=== PATIENT | female | born 1950 | race Caucasian/White ===

== ENCOUNTER 2024-12-17 09:26 | Inpatient (IN) | payer MEDICARE, OTHER, SELFPAY ==
[2024-12-16] VITALS (14 sets, daily range): BP systolic 115–163; BP diastolic 53–87; BMI 27.3; BMI 25.7
--- NOTE | 2024-12-16 07:02 | ED.GENMED ---
History of Present Illness
General
Chief Complaint: Rectal Bleeding
Source: patient
Time Seen by Provider: 12/16/24 06:46
History of Present Illness
History of Present Illness:
74-year-old female presents to the emergency room complaining of bright red blood per rectum. Symptoms began last evening when she developed nausea vomiting and passed bloody stool. She no longer has any nausea or vomiting but has had several
episodes of passing small amounts of bright red blood. She has mild lower abdominal pain. She does not take any oral anticoagulants. Patient is unsure if she vomited any blood because it is in the dark.
Phy Exam
Physical Exam
Physical Exam:
General: Awake, Alert, Oriented X3. No acute distress.
Vitals: unremarkable
Head: Atraumatic
Eyes: Pupils equal, EOMI
Throat: Airway intact, no exudates
Neck: Trachea midline
Lungs: Clear and equal b/l
Heart: Regular rate, no murmurs
Abd: Soft, Nontender, No pulsatile mass
Rectal: Empty rectal vault
Neuro: Nonfocal
Skin: Warm, dry, no rash
Extremities: pulses equal b/l, no edema
Course
Orders/Labs/Results
Orders:
Orders
12/16/24 06:54
IV Insert/Care/Rem.- Treatment PRN
12/16/24 07:01
CT Abd/pelvis W Iv Cont Urgent
Comment:
Reason For Exam: rectal bleeding, abd pain
12/16/24 07:03
Type+Screen Urgent
Basic Metabolic Panel Urgent
Complete Blood Count/With Diff Urgent
12/16/24 07:57
ABO [Blood Group&Type] Urgent
12/16/24 09:11
Piperacillin/Tazo 4.5 Gram [Zosyn] 4.5 gram in 100 ml IV NOW
12/16/24 09:12
HYDROmorphone [Dilaudid] 0.5 mg IV NOW STA
12/16/24 09:14
Stool Culture Urgent
[facility] Source: Feces/Stool
Specimen Description:
Stool For WBC Urgent
[facility] Source: Feces/Stool
Specimen Description:
12/16/24 13:06
HYDROmorphone [Dilaudid] 0.5 mg IV NOW STA
Abnormal Lab Results
12/16/24
07:03
WBC 16.4 H 10^3/uL
(4.8-10.8)
MPV 10.8 H fL
(7.4-10.4)
Abs Immat Gran (auto) 0.1 H 10^3/uL
(0-0.05)
Absolute Neuts (auto) 14.2 H 10^3/uL
(1.4-6.5)
Absolute Monos (auto) 0.7 H 10^3/uL
(0.1-0.6)
Neutrophils % 86.8 H %
(42.2-75.2)
Lymphocytes % 8.2 L %
(20.5-51.1)
Sodium 134 L mmol/L
(135-145)
BUN 19 H mg/dl
(7-17)
Glucose 152 H mg/dl
(70-99)
12/16/24 07:03
12/16/24 07:03
Vital Signs
Initial and Last Documented VS:
Initial Vital Signs
Temp Pulse Resp BP Pulse Ox
98.0 F 110 20 128/85 97
12/16/24 04:53 12/16/24 04:53 12/16/24 04:53 12/16/24 04:53 12/16/24 04:53
Last Documented Vital Signs
Temp Pulse Resp BP Pulse Ox
98.8 F 87 15 115/57 93
12/16/24 05:44 12/16/24 08:00 12/16/24 08:00 12/16/24 10:00 12/16/24 10:00
MDM/Problems Addressed
Differential Diagnosis Includes:
Diverticular bleed, infectious colitis, inflammatory bowel disease, ischemic
MDM/Problems Addressed:
Patient presents with rectal bleeding that is suggestive of either diverticular bleeding or colitis. She does have abdominal pain associate with this. CT shows inflammatory changes of the colon from the transverse colon to the rectum. White count
is elevated at 16.4. Patient treated with antibiotics. Will require hospitalization for monitoring, pain control.
*Radiology
Radiology exam reviewed: radiology read reviewed
*Pulse Oximetry
Patient hypoxic: no
*Cell Tuber Hand Interpretation
Rate: normal
Interpretation: normal
Heart Rate: 82
Rhythm: sinus
*Critical Care Note
Total Time (30-74mins, 75-104mins- exclusive of procedures): Not Applicable
ED Attending Note
-
Portions of this chart may have been created with voice recognition software.� Occasional wrong word or��sound alike� substitutions may have occurred due to the inherent limitations of voice recognition software.
Discharge Plan
Departure
Patient Disposition: Admit
Date of Disposition: 12/16/24
Time of Disposition: 09:13
Admit to: Med/Surg
Presentation/result/management discussed w/ accepting MD/DO: Hospitalist
Condition: Fair
Discharge Problem:
Rectal bleeding, Colitis, Abdominal pain
Referrals:
Declan Velez MD [Family Provider] -
Interventions
Interventions:
*Risk Screen - Suicide Last Done: 12/16/24 04:53
*General Assessment Last Done: 12/16/24 04:53
*Neglect/Abuse Screening Last Done: 12/16/24 04:53
*ED- Fall Risk Assessment Last Done: 12/16/24 05:46
*ED COVID-19 Vaccine History Last Done: 12/16/24 05:46
RG-Cxwdui-Wqwrsdyldm Assessment Last Done: 12/16/24 05:49
ED- Cardiac Assessment Last Done: 12/16/24 05:47
ED- Pulmonary Assessment Last Done: 12/16/24 05:49
Discharge Date and Time
Print Language: SYRIAC
[2024-12-16 07:12] LABS: % Basophils 0.1 % (0-2); % Immature Granulocytes 0.5 % (0-0.5); % Lymphocytes 8.2 % (20.5-51.1); % Monocytes 4.4 % (1.7-9.3); % Neutrophils 86.8 % (42.2-75.2); Absolute Immature Granulocytes 0.1 10^3/uL (0-0.05); Absolute Lymphocytes 1.3 10^3/uL (1.2-3.4); Absolute Monocytes 0.7 10^3/uL (0.1-0.6); Absolute Neutrophils 14.2 10^3/uL (1.4-6.5); Hematocrit 39.4 % (37.0-47.0); Hemoglobin 13.3 g/dL (12.0-16.0); Mean Corp Hgb Conc. 33.8 g/dL (33.0-37.0); Mean Corpuscular Volume 85.8 fL (81.0-99.0); Mean Platelet Volume 10.8 fL (7.4-10.4); Nucleated Red Blood Cells % 0 %; Platelet Count 317 10^3/uL (130-400); Red Blood Cell Count 4.59 10^6/uL (4.20-5.40); Red Cell Dist. Width 12.2 % (11.5-14.5); White Blood Cell Count 16.4 10^3/uL (4.8-10.8)
[2024-12-16 07:23] LABS: Blood Urea Nitrogen 19 mg/dl (7-17); Calcium 9.4 mg/dl (8.4-10.2); Carbon Dioxide 26 mmol/L (22-30); Chloride 99 mmol/L (98-107); Estimated Creatinine Clearance 78 ml/min; Glucose 152 mg/dl (70-99); Potassium 4.4 mmol/L (3.5-5.1); Sodium 134 mmol/L (135-145); eGFR > 60.00
[2024-12-16] MEDS: DILAUDID 0.5 MG IV ×3 (09:26→21:35)
[2024-12-16] MEDS: ZOSYN 100 IV (09:26)
--- NOTE | 2024-12-16 13:19 | HPS.HSE ---
Family Physician
-
Family Physician: Declan Velez
Chief Complaint
-
rectal bleeding
History of Present Illness
74-year-old female past medical history of rheumatoid arthritis, hypertension, depression, presenting with bright red blood per rectum. Symptoms started last evening when she developed nausea and vomiting and plus diarrhea with bloody stool. She
no longer has nausea or vomiting but continues to pass all amounts of bright red blood. She has mild bilateral lower abdominal pain. Denies anticoagulants. Not sure if she vomited blood because it was dark and she was not able to see it. Denies
fevers or chills. Denies any family history of GI problems.
She and her ate out last night and had codfish. Her feels fine.
Denies smoking or alcohol use.
Medical History
Past Medical History
Past Medical History: Reports Other ( rheumatoid arthritis, hypertension, depression)
Past Surgical History: Reports Other (back surgery )
Social History
Tobacco: Non-smoker
Alcohol: None
Drug: None
Family History
Family History: Not pertinent
Allergies / Home Medications
Allergies reflects when Allergies were last updated in [employer].
Home Medications with original date entered in [employer]
Allergy/Medication List:
Allergies
Allergy/AdvReac Type Severity Reaction Status Date / Time
No Known Allergies Allergy Unverified 12/16/24 04:52
Review of Systems
-
History Source: Patient
A 12 point ROS was completed and negative except as noted: Yes
Constitutional: Reports No Symptoms
EENT: Reports No Symptoms
Respiratory: Reports No Symptoms
Cardiac: Reports No Symptoms
Abdomen/GI: Reports See HPI
: Reports No Symptoms
Musculoskeletal: Reports No Symptoms
Skin: Reports No Symptoms
Neurological: Reports No Symptoms
Endocrine: Reports No Symptoms
Hematologic/Lymphatic: Reports No Symptoms
Psych: Reports No Symptoms
Physical Exam
Vital Signs
Vital Signs
Temp Pulse Resp BP Pulse Ox
98.8 F 87 15 115/57 93
12/16/24 05:44 12/16/24 08:00 12/16/24 08:00 12/16/24 10:00 12/16/24 10:00
Physical Exam
General: Well Developed, Well Nourished and No Apparent Distress
HEENT: NormoCephalic, Moist mucous membranes and Atraumatic
Respiratory: Clear
Cardiac: S1/S2 and Regular Rhythm; No Murmur or Rub
GI: Soft, Normal Bowel Sounds and Tender; No Organomegaly
Rectal: Deferred by Provider
Musculoskeletal: No Clubbing, No Cyanosis and No Edema
Skin: No Rash
Neuro: Nonfocal/grossly intact
Laboratory Results
-
12/16/24 07:03
12/16/24 07:03
Data Reviewed
-
Lab Data: Labs Reviewed by me
Old Records: Reviewed
Impression/Plan
-
IMPRESSION:
PLAN:
# Infectious colitis with bright red blood per rectum
-Hemoglobin stable at 13.3
-CT abdomen pelvis shows colitis on the left side of the transverse colon continuously throughout the rectum
-N.p.o.
-IV fluids
-Zosyn
-Stool culture pending
-Zofran, Dilaudid for pain
Rheumatoid arthritis
-On Orencia infusion
Essential hypertension
-Continue lisinopril 15 mg
Anxiety/depression
-Continue citalopram 20 mg
Full code
DVT prophylaxis SCDs
N.p.o.
[2024-12-16] MEDS: ZOSYN 50 IV ×2 (16:42→21:40)
[2024-12-16] MEDS: NSS 1000 IV (16:42)
[2024-12-17] MEDS: NSS 1000 IV (03:16)
[2024-12-17] MEDS: ZOSYN 50 IV ×4 (03:16→21:10)
[2024-12-17 07:00] VITALS: BP 153/83
--- NOTE | 2024-12-17 07:04 | W.PN.HOSP.TC ---
Today's Communication/Plan
-
cont abx
follow up stool studies
diet advanced to low residue
discontinue IVF
pain control, antiemetics prn
Assessment / Plan
Assessment / Plan
Physical Exam
General: no acute distress appears comfortable at this time
HEENT: NormoCephalic, Moist mucous membranes and Atraumatic
Respiratory: Clear
Cardiac: S1/S2 and Regular Rhythm; No Murmur or Rub
GI: Soft, nondistended, bowel sounds present and Mild Tenderness
Musculoskeletal: No Clubbing, No Cyanosis and No Edema
Skin: No Rash
Neuro:Aox3 conversant coherent
Psych: calm
74F RA HTN Depression here for infectious colitis
# Infectious colitis with bright red blood per rectum
-Hemoglobin stable at 13.3
-CT abdomen pelvis shows colitis on the left side of the transverse colon continuously throughout the rectum
-tolerated clear liquid diet advanced to low residue
-IV fluids completed
-cont Zosyn
-Stool culture neg cdiff norovirus, rest of studies pending
-Zofran, Dilaudid for pain
Rheumatoid arthritis
-On Orencia infusion
Essential hypertension
-Continue lisinopril 15 mg
Anxiety/depression
-Continue citalopram 20 mg
Full code
DVT prophylaxis SCDs
I spent a total of 50 minutes with the patient or on the floor. More than 50% of this time involved counseling and coordination of care.
Anticipated Discharge: 24 - 48 hours
Subjective/Interval History
-
Date of Service: December 17, 2024
reports improvement in symptoms, abd pain resolved, bloody bowel movements however persists. VSS.
Objective Data
-
Labs:
Laboratory Results
12/17/24
06:56
WBC Pending
Hgb Pending
Hct Pending
Plt Count Pending
Sodium Pending
Potassium Pending
Chloride Pending
Carbon Dioxide Pending
BUN Pending
Creatinine Pending
Glucose Pending
Calcium Pending
Total Bilirubin Pending
AST Pending
ALT Pending
Alkaline Phosphatase Pending
Vital Signs:
Vital Signs
Temp Pulse Resp BP Pulse Ox
98.0 F 80 18 146/74 95
12/16/24 23:55 12/16/24 23:55 12/16/24 23:55 12/16/24 23:55 12/16/24 23:55
[2024-12-17 07:22] LABS: % Basophils 0.1 % (0-2); % Eosinophils 0.9 % (0-6); % Immature Granulocytes 0.4 % (0-0.5); % Lymphocytes 13.5 % (20.5-51.1); % Neutrophils 80.1 % (42.2-75.2); Absolute Eosinophils 0.2 10^3/uL (0-0.7); Absolute Immature Granulocytes 0.1 10^3/uL (0-0.05); Absolute Lymphocytes 2.2 10^3/uL (1.2-3.4); Absolute Monocytes 0.8 10^3/uL (0.1-0.6); Hemoglobin 12.1 g/dL (12.0-16.0); Mean Corp Hgb Conc. 33.6 g/dL (33.0-37.0); Mean Corpuscular Hgb 29.1 pg (27.0-31.0); Mean Corpuscular Volume 86.5 fL (81.0-99.0); Mean Platelet Volume 10.2 fL (7.4-10.4); Nucleated Red Blood Cells % 0 %; Platelet Count 282 10^3/uL (130-400); Red Blood Cell Count 4.16 10^6/uL (4.20-5.40); Red Cell Dist. Width 12.6 % (11.5-14.5); White Blood Cell Count 16.2 10^3/uL (4.8-10.8)
[2024-12-17 07:43] LABS: ALT (SGPT) 11 U/L (0-35); AST (SGOT) 14 U/L (14-36); Albumin 3.3 g/dl (3.5-5.0); Alkaline Phosphatase 90 U/L (38-126); Blood Urea Nitrogen 10 mg/dl (7-17); Calcium 8.2 mg/dl (8.4-10.2); Carbon Dioxide 27 mmol/L (22-30); Chloride 103 mmol/L (98-107); Estimated Creatinine Clearance 69 ml/min; Glucose 108 mg/dl (70-99); Potassium 3.7 mmol/L (3.5-5.1); Sodium 137 mmol/L (135-145); Total Protein 5.7 g/dl (6.3-8.2); eGFR > 60.00
[2024-12-17] MEDS: ZESTRIL 15 MG PO (09:22)
[2024-12-17] MEDS: VITAMIN D3 (cholecalciferol) 25 MCG PO (09:22)
[2024-12-17] MEDS: CELEXA 20 MG PO (09:22)
[2024-12-17] MEDS: NSS IV (13:25)
[2024-12-17 16:00] VITALS: BP 141/85
[2024-12-17] MEDS: DILAUDID 0.5 MG IV (16:06)
[2024-12-17 17:23] LABS: Hematocrit 35.2 % (37.0-47.0); Hemoglobin 11.7 g/dL (12.0-16.0); Mean Corp Hgb Conc. 33.2 g/dL (33.0-37.0); Mean Corpuscular Volume 87.3 fL (81.0-99.0); Mean Platelet Volume 9.8 fL (7.4-10.4); Platelet Count 274 10^3/uL (130-400); Red Blood Cell Count 4.03 10^6/uL (4.20-5.40); Red Cell Dist. Width 12.7 % (11.5-14.5); White Blood Cell Count 15.4 10^3/uL (4.8-10.8)
[2024-12-17 23:28] VITALS: BP 127/78
[2024-12-18] MEDS: ZOSYN 50 IV ×4 (04:32→21:55)
[2024-12-18 05:20] LABS: Hematocrit 35.5 % (37.0-47.0); Hemoglobin 11.9 g/dL (12.0-16.0); Mean Corp Hgb Conc. 33.5 g/dL (33.0-37.0); Mean Corpuscular Volume 86.6 fL (81.0-99.0); Mean Platelet Volume 10.1 fL (7.4-10.4); Platelet Count 277 10^3/uL (130-400); Red Cell Dist. Width 12.7 % (11.5-14.5)
[2024-12-18 05:49] LABS: Blood Urea Nitrogen 7 mg/dl (7-17); Calcium 8.6 mg/dl (8.4-10.2); Carbon Dioxide 31 mmol/L (22-30); Chloride 104 mmol/L (98-107); Estimated Creatinine Clearance 69 ml/min; Glucose 111 mg/dl (70-99); Phosphorus 2.5 mg/dl (2.5-4.5); Potassium 4.1 mmol/L (3.5-5.1); Sodium 138 mmol/L (135-145); eGFR > 60.00
[2024-12-18 07:05] VITALS: BP 154/85
--- NOTE | 2024-12-18 07:10 | W.PN.HOSP.TC ---
Today's Communication/Plan
-
cont abx
follow up stool studies
monitor bowel movements, H&H
Assessment / Plan
Assessment / Plan
Physical Exam
General: no acute distress appears comfortable at this time
HEENT: NormoCephalic, Moist mucous membranes and Atraumatic
Respiratory: Clear
Cardiac: S1/S2 and Regular Rhythm; No Murmur or Rub
GI: Soft, nondistended, bowel sounds present and Mild Tenderness
Musculoskeletal: No Clubbing, No Cyanosis and No Edema
Skin: No Rash
Neuro:Aox3 conversant coherent
Psych: calm
74F RA HTN Depression here for infectious colitis
# Infectious colitis with bright red blood per rectum
-H&H stable
-CT abdomen pelvis shows colitis on the left side of the transverse colon continuously throughout the rectum
-tolerated clear liquid diet advanced to low residue
-IV fluids completed
-cont Zosyn
-Stool culture neg cdiff norovirus, rest of studies pending follow
-Zofran, Dilaudid for pain
Rheumatoid arthritis
-On Orencia infusion
Essential hypertension
-Continue lisinopril 15 mg
Anxiety/depression
-Continue citalopram 20 mg
Full code
DVT prophylaxis SCDs
Discussed with patient and patient's Miguel
I spent a total of 40 minutes with the patient or on the floor. More than 50% of this time involved counseling and coordination of care.
Anticipated Discharge: 24 - 48 hours
Subjective/Interval History
-
Date of Service: December 18, 2024
Overall reports feeling well. Tolerating diet. Bloody bowel movements persist though improving
Objective Data
-
Labs:
Laboratory Results
12/18/24
04:34
WBC 14.0 H
Hgb 11.9 L
Hct 35.5 L
Plt Count 277
Sodium 138
Potassium 4.1
Chloride 104
Carbon Dioxide 31 H
BUN 7
Creatinine 0.6
Glucose 111 H
Calcium 8.6
Vital Signs:
Vital Signs
Temp Pulse Resp BP Pulse Ox
98.1 F 77 18 127/78 95
12/17/24 23:28 12/17/24 23:28 12/17/24 23:28 12/17/24 23:28 12/17/24 23:28
I&O
12/17/24 12/18/24 12/19/24
05:59 06:59 06:59
Intake Total
Balance
[2024-12-18] MEDS: VITAMIN D3 (cholecalciferol) 25 MCG PO (08:13)
[2024-12-18] MEDS: ZESTRIL 15 MG PO (08:13)
[2024-12-18] MEDS: CELEXA 20 MG PO (08:14)
--- NOTE | 2024-12-18 10:43 | CM ---
Spoke with patient to obtain information for assessment. She stated that she lives with her spouse in a one floor condo with no steps. She is independent with dressing, bathing, self care and all other ADLs. 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
and do laundry. She drives and can get to appointments and she does her own shopping. Her spouse is supportive. She denied any DME. No VN history and has never been to a SNF.
Patient has a prescription plan and uses, [facility] in [place] for all of her medications.
Patient's PCP is, Declan Velez.
Explanation provided regarding OBS status. For signed, on chart.
Plan: Case management will continue to follow and assist with discharge planning. Should be home no needs. Will watch for IV ABX needs.
[2024-12-18 15:03] VITALS: BP 160/87
[2024-12-18 23:06] VITALS: BP 133/78
[2024-12-19] MEDS: ZOSYN 50 IV ×2 (03:45→09:52)
[2024-12-19 07:05] LABS: Hemoglobin 12.2 g/dL (12.0-16.0); Mean Corp Hgb Conc. 33.9 g/dL (33.0-37.0); Mean Corpuscular Hgb 29.2 pg (27.0-31.0); Mean Corpuscular Volume 86.1 fL (81.0-99.0); Mean Platelet Volume 10.3 fL (7.4-10.4); Platelet Count 291 10^3/uL (130-400); Red Blood Cell Count 4.18 10^6/uL (4.20-5.40); Red Cell Dist. Width 12.6 % (11.5-14.5); White Blood Cell Count 8.2 10^3/uL (4.8-10.8)
[2024-12-19 07:27] LABS: Blood Urea Nitrogen 7 mg/dl (7-17); Carbon Dioxide 30 mmol/L (22-30); Chloride 103 mmol/L (98-107); Estimated Creatinine Clearance 69 ml/min; Glucose 108 mg/dl (70-99); Phosphorus 3.2 mg/dl (2.5-4.5); Sodium 139 mmol/L (135-145); eGFR > 60.00
[2024-12-19 07:30] VITALS: BP 170/88
[2024-12-19 07:47] LABS: Glucose - Point of Care 103 mg/dl (70-99)
[2024-12-19] MEDS: CELEXA 20 MG PO (08:29)
[2024-12-19] MEDS: VITAMIN D3 (cholecalciferol) 25 MCG PO (08:29)
[2024-12-19] MEDS: ZESTRIL 15 MG PO (08:30)
--- NOTE | 2024-12-19 08:39 | W.PN.HOSP.TC ---
Today's Communication/Plan
-
Discharge plan today
Assessment / Plan
Assessment / Plan
Physical exam:
General: Well Developed, Well Nourished and No Apparent Distress
HEENT: Normocephalic, Atraumatic and Moist Mucous Membranes
Respiratory: Clear to Auscultation; Negative Wheezes, Rales or Rhonchi
Cardiac: Regular Rhythm and S1/S2
GI: Soft, Nontender and Nondistended
Musculoskeletal: No Clubbing, No Cyanosis and No Edema
Neuro: Awake, Alert and Oriented
Psych: Calm
74F RA HTN Depression here for infectious colitis
# Infectious colitis with bright red blood per rectum
-H&H stable--> hemoglobin 12.2 today
-White blood cell count from 15.4 down to 8.2 today on antibiotics
-Patient feels symptomatically much improved today.
-CT abdomen pelvis shows colitis on the left side of the transverse colon continuously throughout the rectum
-tolerating low residue
-IV fluids completed
-cont Zosyn and now can change to oral antibiotics.
-Stool culture neg cdiff norovirus, rest of studies negative as well.
-Zofran, Dilaudid for pain but has not required any. Recommend colonoscopy as outpatient
Rheumatoid arthritis
-On Orencia infusion
Essential hypertension
-Continue lisinopril 15 mg
Anxiety/depression
-Continue citalopram 20 mg
Full code
DVT prophylaxis SCDs
Discussed with patient and patient's Miguel at bedside. Patient comfortable with discharge planning today.
Anticipated Discharge: Today
Subjective/Interval History
-
Date of Service: December 19, 2024
Patient feels well. No abdominal pain nausea or vomiting. No diarrhea or bright blood per rectum or melena or hematemesis or hematochezia. Afebrile
Objective Data
-
Labs:
Laboratory Results
12/19/24
06:34
WBC 8.2
Hgb 12.2
Hct 36.0 L
Plt Count 291
Sodium 139
Potassium 4.0
Chloride 103
Carbon Dioxide 30
BUN 7
Creatinine 0.6
Glucose 108 H
Calcium 9.0
Vital Signs:
Vital Signs
Temp Pulse Resp BP Pulse Ox
98.0 F 76 17 170/88 97
12/19/24 07:30 12/19/24 08:30 12/19/24 07:30 12/19/24 08:30 12/19/24 07:30
I&O
12/18/24 12/19/24 12/20/24
06:59 06:59 06:59
Intake Total 1080 / 1080
Balance 1080 / 1080
--- NOTE | 2024-12-19 10:00 | CM ---
Reviewed the chart notes and spoke with the patient at the bedside. IMM reviewed. Patient's spouse will provide transportation home at discharge. CM continues to be available to patient/family and is monitoring medical plan for needs at discharge.
Plan: Discharge to home when medically stable. No needs identified at this time.
--- NOTE | 2024-12-19 14:16 | W.DCSUMMARY ---
Discharge Summary
Discharge Data
Date of Admission: 12/17/24
Date of Discharge: 12/19/24
-
Pending Results: No
Hospital Course
Patient is 74 years old female with history of rheumatoid arthritis, hypertension, depression, came into the hospital with abdominal pain nausea vomiting and some element of bright blood per rectum as well. Patient had significant leukocytosis and
CT scan of the abdomen that showed left-sided transverse colon colitis. She was started on IV fluids and IV antibiotics. Her CT was negative as well as the rest of the cultures in her stools. Her diet was advanced as tolerated and she did well
her leukocytosis improved from 15,000 went down to normal 8000. Patient feels back to her baseline and will switch her antibiotics to oral. We recommend follow-up with GI as outpatient for further evaluation if warranted.
Discharge duration: 35 minutes
Discharge Plan
-
Patient Disposition: Home (Routine Discharge)
Discharge Diagnosis/Procedures: Infectious colitis.
Diet: Low Residue
Additional Diets: Back to regular diet after 1 to 2 weeks.
Activity: As tolerated
Blood Work: Please PCP to order CBC, BMP within 1 week.
Others Tests: Consider colonoscopy as outpatient with GI evaluation over the next 1 to 3 months.
Referrals:
Declan Velez MD [Family Provider] - in less than 1 week
Prescriptions:
New
ciprofloxacin HCl [Cipro] 500 mg tablet
500 mg PO BID Qty: 10 0RF
metronidazole 500 mg tablet
500 mg PO Q8H 5 Days Qty: 15 0RF
Continued
citalopram 20 mg Tablet
20 mg PO DAILY
lisinopril 5 mg Tablet
15 mg PO DAILY
cholecalciferol (vitamin D3) [Vitamin D3] 25 mcg (1,000 unit) Tablet
25 mcg PO DAILY
Discharge Orders:
Discharge Patient (As Directed); Ordered 12/19/24
Ordered By: Amilcar Hays
Discharge Date and Time
Discharge Date/Time: 12/19/24 15:30
Print Language: AMHARIC
[2024-12-19 14:51] VITALS: BP 156/88
== END 2024-12-19 15:30 | disposition home or self-care (01) | DRG 392 ==
LOC: 3 WEST ACU 09:26
PROVIDERS: Internal Medicine; ADMITTING PHYSICIAN Hospitalist; ATTENDING PHYSICIAN Hospitalist; EMERGENCY PHYSICIAN Emergency Medicine; FAMILY PHYSICIAN Internal Medicine
DX: A09 Infectious gastroenteritis and colitis, unspecified (principal); M06.9 Rheumatoid arthritis, unspecified; I10 Essential (primary) hypertension; F32.A Depression, unspecified; F41.9 Anxiety disorder, unspecified
CPT/HCPCS: 74177; 80048; 80053; 82962; 83735; 84100; 85025; 85027; 86850; 86900; 86901; 87045; 87046; 87324; 87427; 87449; 87798; 89055; 96361; 96374; 96375; 96376; 99284; Q9967